=== PATIENT | female | born 1985 | race Caucasian/White ===

== ENCOUNTER 2018-02-27 04:51 | Emergency (ER) | payer MEDICAID, OTHER ==
[~2018-02-27 04:51] MED LIST: Oxycodone/Acetaminophen PO; PREN0.01 PO
--- NOTE | 2018-02-27 07:37 | PD ---
HPI Chief Complaint ctxs Date Seen: Feb 27, 2018 Time Seen: 07:31 Travel History International Travel<30 Days: No Contact w/Intl Traveler<30Days: No Known Affected Area: No History of Present Illness HPI pt. is a @ 36 6/7 weeks w/ c/o ctxs. pt. states increased in intensity and freq from 1 am. +FM, no lof/vb. Weeks Gestation: 36 Para: 1 : 2 History Past Medical History Medical History: Denies Significant Hx Obstetric History Obstetric History , x 1 Past Surgical History Surgical History: No Previous Surgery Family History Family History: Negative Social History Alcohol Use: No Tobacco Use: No Substance Abuse: No Allergies-Medications (Allergen,Severity, Reaction): Coded Allergies: No Known Allergies (Unverified , 05/16/14) Home Meds Active Scripts [Oxycodone/Acetaminophen] 1 TAB TAB No Conflict Check, 1 TAB PO Q4H Y for PAIN SCALE 1 TO 4, TAB Prov:Alexia Donahue MD 05/18/14 Reported Medications Multivit/Min/Fol Ac/Iron/Pren ( Vit ( Plus)) Tab, 1 TAB PO DAILY, TAB 05/16/14 Review of Systems Except as stated in HPI: all other systems reviewed are Neg Physical Exam Narrative GENERAL: Well-nourished, well-developed patient. SKIN: Warm and dry. HEAD: Normocephalic and atraumatic. EYES: No scleral icterus. No injection or drainage. ENT: No nasal drainage noted. Mucous membranes pink. Airway patent. NECK: Supple, trachea midline. No JVD. CARDIOVASCULAR: Regular rate and rhythm without murmurs, gallops, or rubs. RESPIRATORY: Breath sounds equal bilaterally. No accessory muscle use. BREASTS: Bilateral exam showed no masses , no retractions, no nipple discharge. ABDOMEN/GI: Abdomen soft, non-tender, bowel sounds present, no rebound, no guarding Gravid GENITOURINARY: External Genitalia: intact and normal in appearance Cervix: post Dilatation: 3 Effacement: 50 Station: high Uterine Contractions: irreg FHT's: Category: 1 Reactive: + Variability: mod EXTREMITIES: No cyanosis or edema. BACK: Nontender without obvious deformity. No CVA tenderness. NEUROLOGICAL: Awake and alert. Motor and sensory grossly within normal limits. Five out of 5 muscle strength in all muscle groups. Normal speech. Data Data Vital Signs Reviewed: Yes Orders Orders Clerical Adjudicator Clear For Discharge (02/27/18 ) [facility] Medical Record Reviewed: Yes Plan pt. not in labor. fht reassuring. pt. to be d/c to home. pt. given precautions for return. f/u as sched. Disposition: DISCHARGE HOME Patient Instructions: General Instructions, Having Your Baby: The Labor Process (GEN) Additional Instructions: keep scheduled appt with Dr Bernstein. Please return for contractions closer than every 5 min for more than 2 hours and getting stronger despite lots of water. Come back if your water breaks, or for bright red bleeding with clots. Departure Forms: Tests/Procedures Kevin Mccartney Jr., MD Feb 27, 2018 07:37
== END 2018-02-27 07:32 | disposition home or self-care (01) ==
LOC: HOBED 04:51
DX: O47.03 False labor before 37 completed weeks of gestation, third trimester (principal); Z3A.36 36 weeks gestation of pregnancy
CPT/HCPCS: 59025

== ENCOUNTER 2018-03-02 01:39 | Emergency (ER) | payer MEDICAID ==
--- NOTE | 2018-03-02 02:27 | PD ---
HPI Chief Complaint ctxs Date Seen: Mar 02, 2018 Time Seen: 02:20 Travel History International Travel<30 Days: No Contact w/Intl Traveler<30Days: No Known Affected Area: No History of Present Illness HPI pt. is a 32 y/o @ 37 2/7 weeks present w/ c/o ctxs. pt. states since 11 :00pm on 03/01/18 has been having ctxs beck have increased in intensity and freq since. +FM, no lof/vb. pt. cervix checked when present and was found to be 3/ 80/high per nursing which is unchanged from previous check 2 weeks ago. Weeks Gestation: 37 Para: 1 : 2 History Past Medical History Medical History: Denies Significant Hx Obstetric History Obstetric History , x 1 Past Surgical History Surgical History: No Previous Surgery Family History Family History: Negative Social History Alcohol Use: No Tobacco Use: No Substance Abuse: No Allergies-Medications (Allergen,Severity, Reaction): Coded Allergies: No Known Allergies (Unverified , 05/16/14) Home Meds Active Scripts [Oxycodone/Acetaminophen] 1 TAB TAB No Conflict Check, 1 TAB PO Q4H Y for PAIN SCALE 1 TO 4, TAB Prov:Alexia Donahue MD 05/18/14 Reported Medications Multivit/Min/Fol Ac/Iron/Pren ( Vit ( Plus)) Tab, 1 TAB PO DAILY, TAB 05/16/14 Review of Systems Except as stated in HPI: all other systems reviewed are Neg Physical Exam Narrative GENERAL: Well-nourished, well-developed patient. SKIN: Warm and dry. HEAD: Normocephalic and atraumatic. EYES: No scleral icterus. No injection or drainage. ENT: No nasal drainage noted. Mucous membranes pink. Airway patent. NECK: Supple, trachea midline. No JVD. CARDIOVASCULAR: Regular rate and rhythm without murmurs, gallops, or rubs. RESPIRATORY: Breath sounds equal bilaterally. No accessory muscle use. ABDOMEN/GI: Abdomen soft, non-tender, bowel sounds present, no rebound, no guarding Gravid GENITOURINARY: External Genitalia: intact and normal in appearance Dilatation:3 Effacement: 80 Station: high Uterine Contractions: irreg FHT's: Category: 1 Reactive:+ Variability: mod EXTREMITIES: No cyanosis or edema. BACK: Nontender without obvious deformity. No CVA tenderness. NEUROLOGICAL: Awake and alert. Motor and sensory grossly within normal limits. Five out of 5 muscle strength in all muscle groups. Normal speech. Data Data Vital Signs Reviewed: Yes Orders Orders Urinalysis - C+S If Indicated (03/02/18 02:16) [facility] Medical Record Reviewed: Yes Plan pt. w/ ctxs. not in labor. condition d/w pt. pt. to be d/c to home. given precautions for return. all ? answered. f/u as sched. Diagnosis Diagnosis: Primary Impression: False labor at or after 37 completed weeks of gestation Additional Impression: 37 weeks gestation of Disposition: DISCHARGE HOME Condition: Good Kevin Mccartney Jr., MD Mar 02, 2018 02:26
[2018-03-02 02:32] LABS: BACTERIA, URINE RARE /hpf; BILIRUBIN, URINE NEG (NEG); BLOOD, URINE NEG (NEG); GLUCOSE,URINE NEG (NEG); KETONE, URINE NEG (NEG); NITRITE,URINE NEG (NEG); PH, URINE 6.5 (5.0-8.5); RENAL EPITHELIAL CELLS <1 /hpf; SQUAMOUS EPITHELIAL CELL URINE 4 /hpf (0-5); URINE COLOR LIGHT-YELLOW (YELLW/STRAW); URINE LEUKOCYTE ESTERASE SMALL (NEG)
== END 2018-03-02 02:40 | disposition home or self-care (01) ==
LOC: HOBED 01:39
DX: O47.1 False labor at or after 37 completed weeks of gestation (principal); Z3A.37 37 weeks gestation of pregnancy
CPT/HCPCS: 59025; 81001

== ENCOUNTER 2018-03-11 07:45 | Inpatient (IN) | payer MEDICAID ==
[2018-03-11] VITALS (50 sets, daily range): BP systolic 86–135; BP diastolic 46–97; PULSE 18–114; RESP 18–20; TEMP 97.8–98.3; O2SAT 100
[~2018-03-11] VITALS: Ht 154.9 cm; Wt 64.0 kg
[2018-03-11] MEDS ORDERED: LACTATED RINGER'S 1000 ML INJ 1,000 ML IV SCH (08:27)
[2018-03-11] MEDS ORDERED: LACTATED RINGER'S 1000 ML INJ 1,000 ML IV PRN (08:27)
--- NOTE | 2018-03-11 08:29 | PD ---
HPI Chief Complaint CTX Date Seen: Mar 11, 2018 Time Seen: 08:39 Travel History International Travel<30 Days: No Contact w/Intl Traveler<30Days: No History of Present Illness HPI Patient is a 32 year old at 38 and 4/7 gestation by first trimester US, JAMES 03/21/18, who presents to the OB ED with contractions since 9pm. She was able to sleep last night but woke up to [facility] at 4am. She denies leakage of fluid and vaginal bleeding. She feels baby moving regularly. She denies LAKE/N/V/D/fever /sick contacts/SOB/calf pain/dizziness/seeing spots. OB care is with [facility]. GBS negative 02/19/2018. History Past Medical History Medical History: Denies Significant Hx Obstetric History Obstetric History G1: normal , 6 lb baby, no complications G2: current Past Surgical History Surgical History: No Previous Surgery Family History Family History: Negative Social History Alcohol Use: No Tobacco Use: No Substance Abuse: No Allergies-Medications (Allergen,Severity, Reaction): Coded Allergies: No Known Allergies (Unverified , 05/16/14) Home Meds Active Scripts [Oxycodone/Acetaminophen] 1 TAB TAB No Conflict Check, 1 TAB PO Q4H Y for PAIN SCALE 1 TO 4, TAB Prov:Alexia Donahue MD 05/18/14 Reported Medications Multivit/Min/Fol Ac/Iron/Pren ( Vit ( Plus)) Tab, 1 TAB PO DAILY, TAB 05/16/14 Review of Systems General / Constitutional: No: Fever, Chills Eyes: No: Blurred Vision, Visual changes HENT: No: Headaches Cardiovascular: No: Chest Pain or Discomfort, Syncope Respiratory: No: Cough, Short of Breath Gastrointestinal: No: Nausea, Vomiting, Diarrhea, Abdominal Pain Genitourinary: No: Urgency, Dysuria Musculoskeletal: No: Weakness, Edema Skin: No Rash, No Itching Neurologic: No: Weakness, Dizziness Physical Exam Narrative GENERAL: Well-nourished, well-developed patient. SKIN: Warm and dry. HEAD: Normocephalic and atraumatic. EYES: No scleral icterus. No injection or drainage. ENT: No nasal drainage noted. Mucous membranes pink. Airway patent. NECK: Supple, trachea midline. No JVD. CARDIOVASCULAR: Regular rate and rhythm without murmurs, gallops, or rubs. RESPIRATORY: Breath sounds equal bilaterally. No accessory muscle use. ABDOMEN/GI: Abdomen soft, non-tender, bowel sounds present, no rebound, no guarding. Gravid. GENITOURINARY: /-2/bloody show External Genitalia: intact and normal in appearance Membranes: intact Uterine Contractions: q 5 min FHT's: Category: 1 Baseline: 125 Reactive: y Variability: mod Decels:absent EXTREMITIES: No cyanosis or edema. BACK: Nontender without obvious deformity. No CVA tenderness. NEUROLOGICAL: Awake and alert. Motor and sensory grossly within normal limits. Five out of 5 muscle strength in all muscle groups. Normal speech. Data Data Vital Signs Reviewed: Yes (wnl) Orders Orders Admit To Inpatient (03/11/18 ) Code Status (03/11/18 08:) Vital Signs (Adult) .Per protocol (03/11/18 08:27) Activity Oob Ad Evonne (03/11/18:) Heart (03/11/18:) Amnioinfusion (03/11/18:) Urinary Catheter Management .ONCE (03/11/18 08:27) Diet Liquid (03/11/18 Breakfast) Lactated Ringer's 1000 Ml Inj (Lr 1000 M (03/11/18 08:27) Lactated Ringer's 1000 Ml Inj (Lr 1000 M (03/11/18 08:27) Sodium Chlorid 0.9% 500 Ml Inj (Ns 500 M (03/11/18 08:30) Sodium Chlor 0.9% 1000 Ml Inj (Ns 1000 M (03/11/18 08:47) Lidocaine 1% Inj (50 Ml) (Xylocaine 1% I (03/11/18 08:30) Citric Acid-Sodium Citrate Liq (Bicitra (03/11/18 08:30) Fentanyl Inj (Fentanyl Inj) (03/11/18 08:30) Fentanyl Inj (Fentanyl Inj) (03/11/18 08:30) Complete Blood Count With Diff (03/11/18:) Hold Clot (03/11/18:) Abo/Rh Blood Type (03/11/18:) Urinalysis - C+S If Indicated (4/11/18 08:27) Drug Screen, Random Urine (03/11/18 08:27) Ob/Psych Drug Screen, Urine (03/11/18 08:27) Resp Oxygen Non Rebreathe Mask (03/11/18 ) ^ Epidural / Intrathecal Infus (03/11/18 08:27) Oxytocin 30 Units-500ml Premix (Pitocin (03/11/18 08:30) Lidocaine 1% Inj (50 Ml) (Xylocaine 1% I (03/11/18 08:30) Light Mineral Oil (Muri-Lube Oil) (03/11/18 08:30) Inpatient Certification (03/11/18 ) Group B Strep: Negative MDM Medical Record Reviewed: Yes Narrative Course / MDM 32 year old at 38 and 4/7 weeks presenting with contractions, cervix 6cm , admit for labor Intrauterine : Category 1 tracing Expect vaginal delivery Cervix 690/-2 Intact membranes Will obtain CBC, T&S, UA, UDS per protocol IV fluids Monitor heart tones Routine care GBS negative SDW Lesa Loja MD R2 Mar 11, 2018 08:29
[2018-03-11] MEDS ORDERED: LIDOCAINE HCL 1% 50 ML VIAL I-DERMAL PRN (08:30)
[2018-03-11] MEDS ORDERED: CITRIC ACID-SODIUM CITRATE LIQ 30 ML UDC PO SCH (08:30)
[2018-03-11] MEDS ORDERED: LIDOCAINE HCL 1% 50 ML VIAL INFIL PRN (08:30)
[2018-03-11] MEDS ORDERED: SODIUM CHLORID 0.9% 500 ML INJ 500 ML IV PRN (08:30)
[2018-03-11] MEDS ORDERED: OXYTOCIN 30 UNITS-500ML PREMIX 500 ML IV ONE (08:30)
[2018-03-11] MEDS ORDERED: MINERAL OIL 10 ML VIAL TOPICAL PRN (08:30)
[2018-03-11] MEDS ORDERED: ePHEDrine/NS 25 MG/5 ML SYRINGE ONE (08:42)
[2018-03-11] MEDS ORDERED: fentaNYL 2MCG-BUPIV 0.125% INJ 100 ML ONE (08:42)
[2018-03-11 08:46] LABS: AUTOMATED NEUTROPHIL # 10.4 TH/MM3 (1.8-7.7); BASOPHIL # 0.1 TH/MM3 (0-0.2); BASOPHIL % 0.7 % (0.0-2.0); EOSINOPHIL # 0.1 TH/MM3 (0-0.4); EOSINOPHIL % 0.5 % (0.0-4.0); HEMATOCRIT 36.3 % (35.0-46.0); HEMOGLOBIN 12.2 GM/DL (11.6-15.3); LYMPH % 10.1 % (9.0-44.0); LYMPHOCYTE # 1.3 TH/MM3 (1.0-4.8); MEAN CELL VOLUME 85.4 FL (80.0-100.0); MEAN CORPUSCULAR HEMOGLOBIN 28.7 PG (27.0-34.0); MEAN CORPUSCULAR HGB CONC 33.6 % (32.0-36.0); MEAN PLATELET VOLUME 8.9 FL (7.0-11.0); MONO % 4.4 % (0.0-8.0); MONOCYTE # 0.5 TH/MM3 (0-0.9); NEUT % 84.3 % (16.0-70.0); PLATELET COUNT 252 TH/MM3 (150-450); RED BLOOD COUNT 4.25 MIL/MM3 (4.00-5.30); RED CELL DISTRIBUTION WIDTH 12.5 % (11.6-17.2); WHITE BLOOD COUNT 12.4 TH/MM3 (4.0-11.0)
[2018-03-11] MEDS ORDERED: SODIUM CHLOR 0.9% 1000 ML INJ 1,000 ML IV PRN (08:47)
[2018-03-11] MEDS ORDERED: BUPIVACAINE HCL PF 0.25% 10 ML VIAL ONE (08:53)
--- NOTE | 2018-03-11 08:57 | HHI.HP ---
HPI Chief Complaint Labor Date Seen: Mar 11, 2018 Time Seen: 08:55 Travel History International Travel<30 Days: No Contact w/Intl Traveler<30Days: No History of Present Illness HPI Patient is a 32 year old at 38 and 4/7 gestation by first trimester US, JAMES 03/21/18, who presents to the OB ED with contractions since 9pm. She was able to sleep last night but woke up to [facility] at 4am. She denies leakage of fluid and vaginal bleeding. She feels baby moving regularly. She denies LA[place]/N/V/D/fever /sick contacts/SOB/calf pain/dizziness/seeing spots. OB care is with [facility]. GBS negative 02/19/2018. Para: 1 : 2 Miscarriage: 0 : 0 History Past Medical History Medical History: Denies Significant Hx Obstetric History Obstetric History G1: normal , 6 lb baby, no complications G2: current Past Surgical History Surgical History: No Previous Surgery Family History Family History: Negative Social History Alcohol Use: No Tobacco Use: No Substance Abuse: No Allergies-Medications (Allergen,Severity, Reaction): Coded Allergies: No Known Allergies (Unverified , 05/16/14) Home Meds Active Scripts [Oxycodone/Acetaminophen] 1 TAB TAB No Conflict Check, 1 TAB PO Q4H Y for PAIN SCALE 1 TO 4, TAB Prov:Alexia Donahue MD 05/18/14 Reported Medications Multivit/Min/Fol Ac/Iron/Pren ( Vit ( Plus)) Tab, 1 TAB PO DAILY, TAB 05/16/14 Review of Systems General / Constitutional: No: Fever, Chills Eyes: No: Blurred Vision HENT: No: Headaches Cardiovascular: No: Chest Pain or Discomfort, Palpitations Respiratory: No: Cough, Short of Breath Gastrointestinal: No: Nausea, Vomiting, Diarrhea, Abdominal Pain Genitourinary: No: Urgency, Dysuria Musculoskeletal: No: Weakness, Edema Skin: No Rash, No Itching Neurologic: No: Weakness, Syncope Physical Exam Narrative GENERAL: Well-nourished, well-developed patient. SKIN: Warm and dry. HEAD: Normocephalic and atraumatic. EYES: No scleral icterus. No injection or drainage. ENT: No nasal drainage noted. Mucous membranes pink. Airway patent. NECK: Supple, trachea midline. No JVD. CARDIOVASCULAR: Regular rate and rhythm without murmurs, gallops, or rubs. RESPIRATORY: Breath sounds equal bilaterally. No accessory muscle use. ABDOMEN/GI: Abdomen soft, non-tender, bowel sounds present, no rebound, no guarding. Gravid. GENITOURINARY: /-2/bloody show External Genitalia: intact and normal in appearance Membranes: intact Uterine Contractions: q 5 min FHT's: Category: 1 Baseline: 125 Reactive: y Variability: mod Decels:absent EXTREMITIES: No cyanosis or edema. BACK: Nontender without obvious deformity. No CVA tenderness. NEUROLOGICAL: Awake and alert. Motor and sensory grossly within normal limits. Five out of 5 muscle strength in all muscle groups. Normal speech. Caprini VTE Risk Assessment Caprini VTE Risk Assessment: Mod/High Risk (score >= 2) VTE Pharm Contraindication: High risk for bleeding Caprini Risk Assessment Model Point Value = 1 Point Value = 2 Point Value = 3 Point Value = 5 Age 41-60 Minor surgery BMI > 25 kg/m2 Swollen legs Varicose veins or History of unexplained or recurrent spontaneous Oral contraceptives or hormone replacement Sepsis (< 1 month) Serious lung disease, including pneumonia (< 1 month) Abnormal pulmonary function Acute myocardial infarction Congestive heart failure (< 1 month) History of inflammatory bowel disease Medical patient at bed rest Age 61-74 Arthroscopic surgery Major open surgery (> 45 min) Laparoscopic surgery (> 45 min) Malignancy Confined to bed (> 72 hours) Immobilizing plaster cast Central venous access Age >= 75 History of VTE Family history of VTE Factor V Leiden Prothrombin [id number] Lupus anticoagulant Anticardiolipin antibodies Elevated serum homocysteine Heparin-induced thrombocytopenia Other congenital or acquired thrombophilia Stroke (< 1 month) Elective arthroplasty Hip, pelvis, or leg fracture Acute spinal cord injury (< 1 month) Prophylaxis Regimen Total Risk Factor Score Risk Level Prophylaxis Regimen 0-1 Low Early ambulation 2 Moderate Order ONE of the following: *Sequential Compression Device (SCD) *Heparin 5000 units SQ BID 3-4 Higher Order ONE of the following medications: *Heparin 5000 units SQ TID *Enoxaparin/Lovenox 40 mg SQ daily (WT < 150 kg, CrCl > 30 mL/min) *Enoxaparin/Lovenox 30 mg SQ daily (WT < 150 kg, CrCl > 10-29 mL/min) *Enoxaparin/Lovenox 30 mg SQ BID (WT < 150 kg, CrCl > 30 mL/min) AND/OR *Sequential Compression Device (SCD) 5 or more Highest Order ONE of the following medications: *Heparin 5000 units SQ TID (Preferred with Epidurals) *Enoxaparin/Lovenox 40 mg SQ daily (WT < 150 kg, CrCl > 30 mL/min) *Enoxaparin/Lovenox 30 mg SQ daily (WT < 150 kg, CrCl > 10-29 mL/min) *Enoxaparin/Lovenox 30 mg SQ BID (WT < 150 kg, CrCl > 30 mL/min) AND *Sequential Compression Device (SCD) Data Data Vital Signs Reviewed: Yes Orders Orders Admit To Inpatient (03/11/18 ) Code Status (03/11/18:) Vital Signs (Adult) .Per protocol (03/11/18 08:) Activity Oob Ad Evonne (03/11/18:) Heart (03/11/18) Amnioinfusion (03/11/18:) Urinary Catheter Management .ONCE (03/11/18:) Diet Liquid (03/11/18 Breakfast) Lactated Ringer's 1000 Ml Inj (Lr 1000 M (03/11/18 08:27) Lactated Ringer's 1000 Ml Inj (Lr 1000 M (03/11/18 08:27) Sodium Chlorid 0.9% 500 Ml Inj (Ns 500 M (03/11/18 08:30) Sodium Chlor 0.9% 1000 Ml Inj (Ns 1000 M (03/11/18 08:47) Lidocaine 1% Inj (50 Ml) (Xylocaine 1% I (03/11/18 08:30) Citric Acid-Sodium Citrate Liq (Bicitra (03/11/18 08:30) Fentanyl Inj (Fentanyl Inj) (03/11/18 08:30) Fentanyl Inj (Fentanyl Inj) (03/11/18 08:30) Complete Blood Count With Diff (03/11/18:) Hold Clot (03/11/18:) Abo/Rh Blood Type (03/11/18:) Urinalysis - C+S If Indicated (4/11/18 08:27) Ob/Psych Drug Screen, Urine (03/11/18 08:27) Resp Oxygen Non Rebreathe Mask (03/11/18 ) ^ Epidural / Intrathecal Infus (03/11/18 08:27) Oxytocin 30 Units-500ml Premix (Pitocin (03/11/18 08:30) Lidocaine 1% Inj (50 Ml) (Xylocaine 1% I (03/11/18 08:30) Light Mineral Oil (Muri-Lube Oil) (03/11/18 08:30) Inpatient Certification (03/11/18 ) Ob (2e) Additional Admit Info (03/11/18 08:28) Fentanyl 2mcg-Bupiv 0.125% Inj (Fentanyl (03/11/18 08:42) Ephedrine/Ns 25 Mg/5 Ml Syr (Ephedrine/N (03/11/18 08:42) ^ Place On Chart (03/11/18 ) ^ Medication Indications (03/11/18 ) Consent (03/11/18 ) ^ No Systemic Narcotics (03/11/18 ) ^ Call Anesthesiologist (03/11/18 ) ^ Discontinue Epidural Cathete (03/11/18 ) Anticoagulant Alert (03/11/18 ) ^ Epidural Alert (03/11/18 ) Bupivacaine Pf 0.25% Inj (Marcaine Pf 0. (03/11/18 08:53) Ephedrine Inj (Ephedrine Inj) (03/11/18 08:53) Group B Strep: Negative Labs Laboratory Tests Test 03/11/18 08:30 White Blood Count 12.4 Red Blood Count 4.25 Hemoglobin 12.2 Hematocrit 36.3 Mean Corpuscular Volume 85.4 Mean Corpuscular Hemoglobin 28.7 Mean Corpuscular Hemoglobin Concent 33.6 Red Cell Distribution Width 12.5 Platelet Count 252 Mean Platelet Volume 8.9 Neutrophils (%) (Auto) 84.3 Lymphocytes (%) (Auto) 10.1 Monocytes (%) (Auto) 4.4 Eosinophils (%) (Auto) 0.5 Basophils (%) (Auto) 0.7 Neutrophils # (Auto) 10.4 Lymphocytes # (Auto) 1.3 Monocytes # (Auto) 0.5 Eosinophils # (Auto) 0.1 Basophils # (Auto) 0.1 CBC Comment DIFF FINAL Differential Comment Assessment/Plan Assessment and Plan 32 year old at 38 and 4/7 weeks presenting with contractions, cervix 6cm , admit for labor Intrauterine : Category 1 tracing Expect vaginal delivery Cervix /-2 Intact membranes Will obtain CBC, T&S, UA, UDS per protocol IV fluids Monitor heart tones Routine care GBS negative SDW Dr. Bernal Discharge Planning 1-2 days post delivery Lesa Cobian MD R2 Mar 11, 2018 08:57
[2018-03-11 09:00] LABS: BACTERIA, URINE OCC /hpf; BILIRUBIN, URINE NEG (NEG); BLOOD, URINE MOD (NEG); GLUCOSE,URINE NEG (NEG); KETONE, URINE NEG (NEG); NITRITE,URINE NEG (NEG); SQUAMOUS EPITHELIAL CELL URINE 17 /hpf (0-5); URINE COLOR LIGHT-YELLOW (YELLW/STRAW); URINE LEUKOCYTE ESTERASE LARGE (NEG)
[2018-03-11] MEDS ORDERED: ePHEDrine/NS 25 MG/5 ML SYRINGE IV PUSH PRN (10:15)
[2018-03-11] MEDS ORDERED: NO SYSTEM NARCOTICS PRN (10:15)
[2018-03-11] MEDS ORDERED: fentaNYL 2MCG-BUPIV 0.125% 100 ML EPIDURAL SCH (10:15)
[2018-03-11] MEDS ORDERED: DO NOT ADMINISTER ANTICOAGULANTS PRN (10:15)
--- NOTE | 2018-03-11 10:57 | PD.LABORPN ---
Subjective Subjective Patient with epidural, no pain or complaints Objective Vital Signs Vital Signs Date Time Temp Pulse Resp B/P (MAP) Pulse Ox O2 Delivery O2 Flow Rate FiO2 03/11/18 10:45 81 03/11/18 10:45 89 111/77 (88) 03/11/18 10:45 88 03/11/18 10:43 18 03/11/18 10:40 68 03/11/18 10:40 68 03/11/18 10:35 66 03/11/18 10:35 66 03/11/18 10:30 73 03/11/18 10:30 69 03/11/18 10:30 77 18 113/77 (89) 03/11/18 10:25 93 03/11/18 10:25 100 03/11/18 10:20 70 03/11/18 10:20 68 03/11/18 10:15 72 03/11/18 10:15 72 18 109/75 (86) 03/11/18 10:15 80 03/11/18 10:10 66 03/11/18 10:10 70 03/11/18 10:05 84 03/11/18 10:05 84 03/11/18 10:00 71 18 110/73 (85) 03/11/18 10:00 72 03/11/18 10:00 64 03/11/18 09:55 79 03/11/18 09:55 78 03/11/18 09:50 77 03/11/18 09:50 86 03/11/18 09:45 107 114/68 (83) 03/11/18 09:45 18 03/11/18 09:45 106 03/11/18 09:45 97 03/11/18 09:40 100 03/11/18 09:40 93 03/11/18 09:35 75 03/11/18 09:35 76 03/11/18 09:30 79 03/11/18 09:30 78 135/79 (97) 03/11/18 09:30 114 03/11/18 09:20 73 03/11/18 09:20 78 03/11/18 09:20 77 122/67 (85) 03/11/18 09:19 18 03/11/18 09:15 76 105/69 (81) 03/11/18 09:15 77 03/11/18 09:15 75 4/11/18 09:13 69 112/67 (82) 03/11/18 09:12 18 03/11/18 09:11 89 101/62 (75) 03/11/18 09:10 72 03/11/18 09:10 77 03/11/18 09:05 89 03/11/18 09:05 80 03/11/18 09:05 89 134/92 (106) 03/11/18 09:00 79 03/11/18 09:00 99 03/11/18 09:00 85 129/97 (108) Objective Pelvic Exam: Cervix: 7/100/-1 Membranes: AROM Uterine Contractions: every 4 min FHT's: Category: 1 Baseline: 120 Reactive: 150 Variability: mod Decels: no Assessment/Plan Assessment and Plan 32YO 38/6 weeks laboring. AROM performed via amniotomy with clear fluid noted. Cervix 7/100/-1, vtx. Cat 1 tracing. 1. IUP -Pitocin titrate per protocol -AROM @ 1025, clear -CTX spontaneous, will monitor cervical change, add Pit as needed -Monitor and toco -Check q2-4h -GBS neg DW Dr. Arsen Cobian,Lesa Chaparro MD R2 Mar 11, 2018 10:57
[2018-03-11] MEDS ORDERED: ONDANSETRON ODT 4 MG TAB PO PRN (12:15)
[2018-03-11] MEDS ORDERED: SODIUM CHLORIDE 0.9% FLUSH 10 ML FLUSH IV FLUSH PRN (12:15)
--- NOTE | 2018-03-11 12:16 | PD.OB.DELI ---
Weeks gestation: 38 Gest age assessed date: Mar 11, 2018 Gest age assessed time: 10:00 Pt started active labor?: Yes Active labor start date: Mar 11, 2018 Active labor start time: 10:00 Medical induction of labor?: No Artificial ROM date: Mar 11, 2018 (clear fluid) Artifical ROM time: 10:25 Anesthesia: Epidural Episiotomy: None Vaginal Delivery: Normal, Spontaneous Presentation: Occiput anterior Nuchal Cord: None Delayed cord clamping (45 sec): Yes : Male Delivery date: Mar 11, 2018 Delivery time: 11:53 One Minute : 8 Five Minute : 9 Weight: 3090g Placenta: Spontaneous delivery, Intact, 3 vessel cord Laceration: No lacerations Estimated blood loss: 100cc Additional Information 32YO now delivered at 38/[address] Delivery by Dr Acosta supervised by Dr Leger and assisted by Dr Halie Cobian. There were no vaginal or perineal lacerations. EBL 100cc. Jhonatan Acosta MD R1 Mar 11, 2018 12:16
[2018-03-11] MEDS ORDERED: OXYTOCIN 30 UNITS-500ML PREMIX 500 ML IV SCH (12:45)
[2018-03-11] MEDS ORDERED: DOCUSATE SODIUM 50 MG/SENNA 8.6 MG TAB PO PRN (12:45)
[2018-03-11] MEDS ORDERED: WITCH HAZEL 50%/GLYCERIN 12.5% 40 PAD JAR TOPICAL PRN (12:45)
[2018-03-11] MEDS ORDERED: BENZOCAINE 20% TOPICAL SPRAY 60 ML CAN TOPICAL PRN (12:45)
[2018-03-11] MEDS ORDERED: ALUMINUM/MAGNESIUM/SIMETH 30 ML CUP PO PRN (12:45)
[2018-03-11] MEDS ORDERED: DIPHTH/TETANUS/ACEL PERTUSSIS (BOOSTER) 0.5 ML VIAL/PFS IM ONE (16:00)
[2018-03-11] MEDS ORDERED: MEASLES, MUMPS, RUBELLA VACCINE 0.5 ML VIAL SQ ONE (16:00)
[2018-03-11] MEDS ORDERED: SODIUM CHLORIDE 0.9% FLUSH 10 ML FLUSH IV FLUSH SCH (21:00)
[2018-03-11] MEDS ORDERED: ZOLPIDEM TARTRATE 5 MG TAB PO PRN (21:00)
[2018-03-11] MEDS: IBUPROFEN 800 MG TAB PO PRN (21:05)
[2018-03-12] MEDS: ACETAMINOPHEN 325 MG TAB PO PRN ×2 (02:59→12:29)
[2018-03-12 08:00] VITALS: BP 107/70; PULSE 62; RESP 20; TEMP 98.1; O2SAT 98
[2018-03-12] MEDS: IBUPROFEN 800 MG TAB PO PRN ×2 (08:11→16:58)
[2018-03-12] MEDS ORDERED: IBUP1TAB7 PO (08:20)
[2018-03-12] MEDS ORDERED: ACET325T15 PO (08:20)
--- NOTE | 2018-03-12 08:21 | HHI.DCPOC ---
Discharge Care Plan Report Symptoms to Your Doctor -Temperature above 100.5 degrees -Redness, of incision or excessive or foul smelling drainage -Unusual pain or calf pain -Increased vaginal bleeding -Painful or difficulty urinating -Feelings of extreme sadness or anxiety after 2 weeks Goals to Promote Your Health * To prevent worsening of your condition and complications, please take all medications as prescribed and only as needed. * To maintain your health at the optimal level, please follow up with your OB/ [employer] in 6 weeks. Directions to Meet Your Goals Take your medications as prescribed Follow your dietary instruction Follow activity as directed Ensure plenty of rest for recovery Drink fluids for hydration Keep your appointments as scheduled Take your immunizations and boosters as scheduled If your symptoms worsen call your PCP, if no PCP go to Urgent Care Center or Emergency Room Smoking is Dangerous to Your Health. Avoid second hand smoke Call the 24-hour crisis hotline for domestic abuse at Jhonatan Acosta MD R1 Mar 12, 2018 08:21
--- NOTE | 2018-03-12 09:02 | HHI.OB ---
Subjective Post Day: 1 Remarks Ms Cruz had no acute events overnight. Pain well controlled, ambulating w/o dizziness, taking PO w/o N/V, voiding and one BM. Lochia is normal. She is . Would like her baby to be circumcised this morning and then would like to discharge today if possible. Denies CP, SOB, DVT pain. No concerns. Objective Vitals/I&O Vital Signs Date Time Temp Pulse Resp B/P (MAP) Pulse Ox O2 Delivery O2 Flow Rate FiO2 03/11/18 20:19 98.2 69 18 108/63 (78) 03/11/18 14:45 83 20 101/65 (77) 03/11/18 14:45 97.8 03/11/18 13:30 18 03/11/18 13:15 18 03/11/18 13:15 18 03/11/18 13:15 62 108/71 (83) 03/11/18 13:01 76 86/46 (59) 03/11/18 13:00 18 03/11/18 12:46 65 118/62 (80) 03/11/18 12:39 18 03/11/18 12:30 66 111/72 (85) 03/11/18 12:26 18 03/11/18 12:15 70 18 113/64 (80) 03/11/18 12:00 96 118/78 (91) 03/11/18 12:00 18 03/11/18 11:50 70 03/11/18 11:45 80 03/11/18 11:45 94 03/11/18 11:45 100 03/11/18 11:45 81 126/86 (99) 03/11/18 11:42 18 03/11/18 11:35 69 03/11/18 11:35 68 03/11/18 11:30 74 18 112/72 (85) 03/11/18 11:30 67 03/11/18 11:30 74 03/11/18 11:25 71 03/11/18 11:25 71 03/11/18 11:20 67 03/11/18 11:15 66 114/78 (90) 03/11/18 11:15 67 03/11/18 11:15 75 03/11/18 11:15 98.3 03/11/18 11:12 18 03/11/18 11:10 75 03/11/18 11:10 73 03/11/18 11:05 73 03/11/18 11:05 72 03/11/18 11:00 18 03/11/18 11:00 74 115/69 (84) 03/11/18 11:00 69 03/11/18 10:45 81 03/11/18 10:45 89 111/77 (88) 03/11/18 10:45 88 03/11/18 10:43 18 03/11/18 10:40 68 03/11/18 10:40 68 03/11/18 10:35 66 03/11/18 10:35 66 03/11/18 10:30 73 03/11/18 10:30 69 03/11/18 10:30 77 18 113/77 (89) 03/11/18 10:25 93 03/11/18 10:25 100 03/11/18 10:20 70 03/11/18 10:20 68 03/11/18 10:15 72 03/11/18 10:15 72 18 109/75 (86) 03/11/18 10:15 80 03/11/18 10:10 66 03/11/18 10:10 70 03/11/18 10:05 84 03/11/18 10:05 84 03/11/18 10:00 71 18 110/73 (85) 03/11/18 10:00 72 03/11/18 10:00 64 03/11/18 09:55 79 03/11/18 09:55 78 03/11/18 09:50 77 03/11/18 09:50 86 03/11/18 09:45 107 114/68 (83) 03/11/18 09:45 18 03/11/18 09:45 106 03/11/18 09:45 97 03/11/18 09:40 100 03/11/18 09:40 93 03/11/18 09:35 75 03/11/18 09:35 76 03/11/18 09:30 79 03/11/18 09:30 78 135/79 (97) 03/11/18 09:30 114 03/11/18 09:20 73 03/11/18 09:20 78 03/11/18 09:20 77 122/67 (85) 03/11/18 09:19 18 03/11/18 09:15 76 105/69 (81) 03/11/18 09:15 77 03/11/18 09:15 75 03/11/18 09:13 69 112/67 (82) 03/11/18 09:12 18 03/11/18 09:11 89 101/62 (75) 03/11/18 09:10 72 03/11/18 09:10 77 03/11/18 09:05 89 03/11/18 09:05 80 03/11/18 09:05 89 134/92 (106) 03/11/18 09:00 79 03/11/18 09:00 99 03/11/18 09:00 85 129/97 (108) Objective Remarks GENERAL: Well-nourished, well-developed patient lying in bed in NAD. CARDIOVASCULAR: Regular rate and rhythm without murmurs, gallops, or rubs. RESPIRATORY: Breath sounds equal bilaterally. No accessory muscle use. No increased WOB. ABDOMEN/GI: Abdomen soft, non-tender. Fundus: Firm, non-tender at umbilicus. GENITOURINARY: Light to moderate bleeding. EXTREMITIES: No cyanosis or edema, non-tender, without signs of DVT. Medications and IVs Current Medications Medications (Trade) Dose Ordered Sig/Hakan Route Start Time Stop Time Status Last Admin Lactated Ringer's 1,000 ml @ 125 mls/hr Q8H IV 03/11/18 08:27 03/11/18 10:49 Lactated Ringer's 1,000 ml @ 3,000 mls/hr Q20M PRN IV 03/11/18 08:27 03/11/18 10:50 Sodium Chloride 1,000 ml @ 100 mls/hr Q10H PRN IV 03/11/18 08:47 (Xylocaine 1% Inj (50 ml)) 0.1 ml UNSCH X1 PRN I-DERMAL 03/11/18 08:30 03/14/18 08:29 (Bicitra Liq) 30 ml [employer] PO 03/11/18 08:30 03/15/18 08:29 (fentaNYL INJ) 50 mcg Q1H PRN IV PUSH 03/11/18 08:30 (fentaNYL INJ) 100 mcg Q1H PRN IV PUSH 03/11/18 08:30 (Xylocaine 1% Inj (50 ml)) 10 ml UNSCH X1 PRN INFIL 03/11/18 08:30 03/13/18 08:29 (Muri-Lube Oil) 10 ml UNSCH PRN TOPICAL 03/11/18 08:30 Miscellaneous Information No systemic narcotics to be given except... UNSCH PRN .XX 03/11/18 10:15 03/12/18 10:14 Miscellaneous Information DO NOT ADMINISTER ANY ANTICOAGUL... UNSCH PRN .XX 03/11/18 10:15 03/12/18 10:14 Fentanyl/ Bupivacaine HCl 100 ml @ 0 mls/hr TITRATE EPIDURAL 03/11/18 10:15 (ePHEDrine/NS 25 MG/5 ML SYR) 10 mg UNSCH PRN IV PUSH 03/11/18 10:15 03/12/18 10:14 (NS Flush) 2 ml BID IV FLUSH 03/11/18 21:00 (NS Flush) 2 ml UNSCH PRN IV FLUSH 03/11/18 12:15 (Tylenol) 650 mg Q4H PRN PO 03/11/18 12:45 03/12/18 02:59 (Motrin) 800 mg Q8H PRN PO 03/11/18 12:45 03/12/18 08:11 (Americaine 20% Top Spr) 1 spray Q4H PRN TOPICAL 03/11/18 12:45 (Tucks Pads) 1 applic QID PRN TOPICAL 03/11/18 12:45 (Pat-Colace) 2 tab Q12H PRN PO 03/11/18 12:45 (Ambien) 5 mg HS PRN PO 03/11/18 21:00 (Mag-Al Plus Susp Liq) 15 ml Q8H PRN PO 03/11/18 12:45 (Zofran Odt) 4 mg Q6H PRN PO 03/11/18 12:15 Assessment/Plan Assessment and Plan 32YO at 38/4 weeks delivered by and is PPD#1. Pain well controlled, ambulating, PO, voiding and stooling. Lochia normal. Pt is . Would like to discharge today if baby is cleared by Peds team. Infant has been circumcised as requested. Physical exam benign. 1. Routine care -Motrin and Tylenol PRN -Encouraged -Encouraged OOB and ambulation -Advised to take only showers (no baths) for next 2 weeks -Advised pelvic rest (no sexual activity) for 6 weeks -Pt to discuss control options at 6 week f/u with [facility] -F/u 6 weeks with [facility] Dispo: today if baby is cleared by Pediatric team Pt dw Ivan Leger and [facility] Discharge Planning today or tomorrow Jhonatan Acosta MD R1 Mar 12, 2018 09:02
[2018-03-12 20:04] VITALS: BP 92/50; PULSE 62; RESP 18; TEMP 97.8
== END 2018-03-12 22:23 | disposition home or self-care (01) | DRG 775 ==
LOC: HOBED 07:45 → H2EB 08:32 → H1EA 14:22
PROVIDERS: ADMIT Obstetrics & Gynecology Obstetrics; ATTEND Obstetrics & Gynecology Obstetrics
PROC: 10E0XZZ Delivery of Products of Conception, External Approach (ICD-10-PCS; principal; 2018-03-11)
PROC: 10907ZC Drainage of Amniotic Fluid, Therapeutic from Products of Conception, Via Natural or Artificial Opening (ICD-10-PCS; 2018-03-11)
PROC: 00HU33Z Insertion of Infusion Device into Spinal Canal, Percutaneous Approach (ICD-10-PCS; 2018-03-11)
PROC: 3E0R3BZ Introduction of Anesthetic Agent into Spinal Canal, Percutaneous Approach (ICD-10-PCS; 2018-03-11)
DX: O80 Encounter for full-term uncomplicated delivery (principal); Z37.0 Single live birth; Z3A.38 38 weeks gestation of pregnancy
CPT/HCPCS: 59025; 80307; 81001; 85025; 86900; 86901; 87086; G0481; J2590; J3010; J7120